=== PATIENT | male | born 1970 | race Caucasian/White ===

== ENCOUNTER 2019-11-13 16:41 | Emergency (ER) | payer OTHER ==
[~2019-11-13] VITALS: Ht 182.9 cm; Wt 86.2 kg
[~2019-11-13 16:41] MED LIST: ACETAMINOPHEN-1 EAC1 PO
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
== END 2019-11-13 17:32 | disposition home or self-care (01) ==
LOC: ED 16:41
DX: S61.206A Unspecified open wound of right little finger without damage to nail, initial encounter (principal); F17.200 Nicotine dependence, unspecified, uncomplicated; W34.00XA Accidental discharge from unspecified firearms or gun, initial encounter
CPT/HCPCS: 99283; A9270